=== PATIENT | female | born 1990 | race Caucasian/White ===

== ENCOUNTER 2021-09-18 20:00 | Emergency (ER) | payer OTHER ==
[~2021-09-18] VITALS: Ht 165.1 cm; Wt 100.0 kg
[~2021-09-18 20:00] MED LIST: FLEXERIL PO; NAPROSYN500 MG PO; OMEPRAZOLE40 MG PO
[2021-09-18 21:57] VITALS: BP 127/78
== END 2021-09-18 22:20 | disposition home or self-care (01) | DRG 563 ==
LOC: ED 20:00
DX: S93.402A Sprain of unspecified ligament of left ankle, initial encounter (principal); S93.602A Unspecified sprain of left foot, initial encounter; X50.0XXA Overexertion from strenuous movement or load, initial encounter; Y92.009 Unspecified place in unspecified non-institutional (private) residence as the place of occurrence of the external cause